=== PATIENT | male | born 1960 | race Caucasian/White ===

== ENCOUNTER → 2021-05-01 | Outpatient (CLI) | payer OTHER | LOC: MRI 11:15 | DX: M54.2 Cervicalgia (principal); M51.36 Other intervertebral disc degeneration, lumbar region; M47.22 Other spondylosis with radiculopathy, cervical region; M47.25 Other spondylosis with radiculopathy, thoracolumbar region; M25.78 Osteophyte, vertebrae; M47.26 Other spondylosis with radiculopathy, lumbar region; M16.12 Unilateral primary osteoarthritis, left hip; I10 Essential (primary) hypertension; F41.1 Generalized anxiety disorder; F43.23 Adjustment disorder with mixed anxiety and depressed mood | CPT/HCPCS: 72141 ==